=== PATIENT | female | born 1985 | race Caucasian/White ===

== ENCOUNTER 2016-08-05 15:09 | Emergency (ER) | payer MEDICAID ==
[~2016-08-05] VITALS: Wt 82.0 kg
[~2016-08-05 15:09] MED LIST: ADV25050 INH; ALBU18HF IH; ALBU8.5H3 INH; BACTDS PO; CEPH-443 PO; CETI10CA PO; GUAI118L94 PO; GUAI473L22 PO; HYDR-906 PO; IBUP-1542 PO; IBUP400T22 PO; IBUP800T25 PO; MECL25TA2 PO; PRED50TA PO; PREN-39 PO
--- NOTE | 2016-08-05 17:28 | ERA ---
ER Documentation Chief Complaint Date/Time DATE: 08/05/16 TIME: 17:27 Chief Complaint VAG BLEEDING X3 DAYS, PAIN HPI The patient is a 30-year-old female, presenting to the ER because of vaginal spotting intermittently for the last 3 days, her last menstrual period was 2 years ago. She had hysterectomy. She complains of dyspareunia and vaginal spotting after sexual intercourse. She denies fever, chills, neck pain, chest pain, abdominal pain, vomiting, diarrhea, dysuria. She does not smoke, drink Past medical history: Asthma Past surgical history: Hysterectomy ROS All systems reviewed and are negative except as per history of present illness. Medications Home Meds Active Scripts Ibuprofen* (Motrin*) 600 Mg Tab, 600 MG PO Q6H Y for PAIN AND OR ELEVATED TEMP, #20 TAB Prov:STARR PAIGE MD 08/05/16 Hydrocodone/Acetaminophen ([place] 5-325 Tablet) 1 Each Tablet, 1 TAB PO Q6H Y for PAIN, #15 TAB Prov:SIMONE LORA MD 06/10/16 Ibuprofen* (Motrin*) 600 Mg Tab, 600 MG PO Q6, #30 TAB Prov:SIMONE LORA MD 06/10/16 Albuterol Sulfate* (Proair HFA*) 8.5 Gm Hfa.aer.ad, 2 PUFF INH Q4H Y for WHEEZING AND SOB, #1 INHALER Prov:NEETA VITAL NP 03/25/16 Prednisone* (Prednisone*) 50 Mg Tablet, 50 MG PO DAILY, #5 TAB Prov:NEETA VITAL NP 03/25/16 Ibuprofen* (Motrin*) 400 Mg Tab, 400 MG PO Q6H Y for PAIN AND OR ELEVATED TEMP, #30 TAB Prov:NEETA VITAL NP 03/25/16 Cetirizine Hcl* (Zyrtec*) 10 Mg Capsule, 10 MG PO DAILY, #30 TAB.CHEW Prov:NEETA VITAL NP 03/25/16 Guaifenesin-Codeine Phosphate* (Guaifenesin* AC Cough Syrup) 473 Ml Liquid, 5 ML PO Q4H Y for COUGH, #60 ML Prov:NEETA VITAL NP 03/25/16 Prednisone* (Prednisone*) 50 Mg Tablet, 50 MG PO DAILY, #5 TAB Prov:NEETA VITAL NP 01/18/16 Albuterol Sulfate* (Proair HFA*) 8.5 Gm Hfa.aer.ad, 2 PUFF INH Q4H Y for WHEEZING AND SOB, #1 INHALER Prov:NEETA VITAL NP 01/18/16 Cetirizine Hcl* (Zyrtec*) 10 Mg Capsule, 10 MG PO DAILY, #30 TAB.CHEW Prov:NEETA VITAL NP 01/18/16 Guaifenesin-Codeine Phosphate* (Guaifenesin* with Codeine Liq) 120 Ml Liquid, 5 ML PO Q4H for COUGH, #60 ML Prov:NEETA VITAL NP 01/18/16 Ibuprofen* (Motrin*) 600 Mg Tab, 600 MG PO Q6H Y for PAIN AND OR ELEVATED TEMP, #30 TAB Prov:HOLLIE AJ NP 11/14/15 Meclizine Hcl* (Antivert*) 25 Mg Tablet, 25 MG PO Q6H Y for NAUSEA AND/OR VOMITING, #20 TAB Prov:HOLLIE AJ NP 11/14/15 Ibuprofen* (Motrin*) 800 Mg Tab, 800 MG PO Q6H Y for PAIN AND OR ELEVATED TEMP, #30 TAB Prov:ALETA TINOCO MD 06/11/15 Cephalexin* (Keflex*) 500 Mg Capsule, 500 MG PO QID for 7 Days, CAP Prov:ALETA TINOCO MD 06/11/15 Sulfamethoxazole-Trimethoprim* (Bactrim* DS) 800-160 Mg Tab, 1 TAB PO BID for 7 Days, TAB Prov:ALETA TINOCO MD 06/11/15 Salmeterol Xinaf/Fluticasone* (Advair*) 250-50 Diskus Inhaler, 1 INH INH BID, # 60 INH 1 Refill Prov:ALEJA MONAHAN 08/23/14 Albuterol Sulfate* (Ventolin HFA*) 18 Gm Hfa.aer.ad, 2 PUFF IH Q4H Y for WHEEZING AND RESP DISTRESS, #1 EA 2 Refills Prov:ALEJA MONAHAN 08/23/14 Reported Medications Albuterol Sulfate* (Proair HFA*) 8.5 Gm Hfa.aer.ad, 2 PUFF INH Q6, INH 09/14/14 Vits W-Ca,Fe,Fa(<1MG) ( Vitamins) 1 Tab Tablet, 1 TAB PO DAILY 09/14/14 Allergies Allergies: Coded Allergies: No Known Allergy (Verified , 08/05/16) PMhx/Soc History of Surgery: Yes (C section) Anesthesia Reaction: No Hx Neurological Disorder: No Hx Respiratory Disorders: Yes (Asthma) Hx Cardiac Disorders: No Hx Psychiatric Problems: No Hx Miscellaneous Medical Probl: No Hx Alcohol Use: No Hx Substance Use: No Hx Tobacco Use: No Physical Exam Vitals Vital Signs Date Time Temp Pulse Resp B/P Pulse Ox O2 Delivery O2 Flow Rate FiO2 08/05/16 15:31 98.2 88 17 141/68 99 Physical Exam Const: No acute distress. Head: Atraumatic. Eyes: Normal Conjunctiva. ENT: Normal External Ears, Nose and Mouth. Neck: Full range of motion. No meningismus. Resp: Clear to auscultation bilaterally. Cardio: Regular rate and rhythm, no murmurs. Abd: Soft, non distended, normal bowel sounds, non tender. Skin: No petechiae or rashes. Back: No midline or flank tenderness. Ext: No cyanosis, or edema. Neur: Awake and alert. No focal deficit Psych: Normal Mood and Affect. Results 24 hrs Laboratory Tests Test 08/05/16 17:53 Bedside Urine Blood 2+ Bedside Urine Glucose (UA) Negative Bedside Urine Ketones (LAB) Negative Bedside Urine Leukocyte Esterase (L Negative Bedside Urine Nitrite (LAB) Negative Bedside Urine Protein (LAB) Negative Bedside Urine pH (LAB) 5.5 Procedures/MDM MEDICAL MAKING DECISION: The patient is a 30-year-old female, presenting with vaginal spotting hematuria of unclear etiology. The differential diagnoses considered include but are not limited to cystitis, ovarian cyst, appendicitis. Departure Diagnosis: Primary Impression: Hematuria Additional Impression: Vaginal spotting Condition: Good Comments She was discharged with Motrin and advised to follow-up with customer account manager in about 1-2 days, sooner if needed and return if any concern The patient's blood pressure was elevated (>120/80) but appears stable without evidence of hypertension emergency or urgency. The patient was counseled about the risks of hypertension and urged to pursue outpatient monitoring and therapy within a week with their primary care physician. STARR PAIGE MD Aug 05, 2016 17:28
[2016-08-05 17:52] LABS: URINE BLOOD (Dip) POC 2+ (NEGATIVE)
[2016-08-05] MEDS ORDERED: IBUP-1542 PO (18:21)
[2016-08-05 19:12] VITALS: BP 122/68; PULSE 77; RESP 18
== END 2016-08-05 19:16 | disposition home or self-care (01) ==
LOC: FTE 15:09
DX: R31.9 Hematuria, unspecified (principal); J45.909 Unspecified asthma, uncomplicated
CPT/HCPCS: 81003; Z7502; 99283

== ENCOUNTER 2016-12-03 20:42 | Emergency (ER) | payer MEDICAID ==
[~2016-12-03] VITALS: Ht 157.5 cm; Wt 83.0 kg
[2016-12-03 20:45] VITALS: Ht 157.5 cm; Wt 83.0 kg
[2016-12-03] MEDS ORDERED: ACET325T33 PO (23:40)
[2016-12-03] MEDS ORDERED: UDROBAC PO (23:40)
[2016-12-03] MEDS ORDERED: LORA10CA PO (23:40)
--- NOTE | 2016-12-03 23:41 | RADRPT ---
PROCEDURE: XR Chest. CLINICAL INDICATION: Chest pain. TECHNIQUE: Single frontal view of the chest. COMPARISON: 01/17/2016. FINDINGS: The cardiomediastinal silhouette is within normal limits. The lungs are clear. No signs of pleural f luid or pneumothorax are seen. The osseous structures and soft tissues are unremarkable. IMPRESSION: No evidence for active cardiopulmonary disease. RPTAT: [facility] Physician Cristiana Date Time Electronically viewed and signed by Fernando Mendoza Physician on 12/03/2016 23:41 RS/
--- NOTE | 2016-12-03 23:47 | ERD ---
ER Documentation Chief Complaint Date/Time DATE: 12/03/16 TIME: 23:45 Chief Complaint flu like symtoms- body aches, cough, runny nose HPI This is a 30-year-old female presenting to the emergency department complaining of cough, runny nose, body aches, sore throat since past Friday. Patient rates t7 his out of 10. She denies any shortness of breath or chest pain. She does state that she has posterior back pain. She has took ibuprofen at 530 without much relief. ROS All systems reviewed and are negative except as per history of present illness. Medications Home Meds Active Scripts Acetaminophen* (Tylenol*) 325 Mg Tablet, 650 MG PO Q4H Y for MILD PAIN LEVEL 1-3 , #30 TAB Prov:CHRISTIANE ODONNELL PA-C 12/03/16 Loratadine* (Claritin*) 10 Mg Capsule, 10 MG PO DAILY, #30 CAP Prov:CHRISTIANE ODONNELL PA-C 12/03/16 Guaifenesin-Codeine Phosphate* (Robitussin* AC) 5 Ml Syrup, 5 ML PO Q4H Y for COUGH, #120 ML Prov:CHRISTIANE ODONNELL PA-C 12/03/16 Ibuprofen* (Motrin*) 600 Mg Tab, 600 MG PO Q6H Y for PAIN AND OR ELEVATED TEMP, #20 TAB Prov:STARR PAIGE MD 08/05/16 Hydrocodone/Acetaminophen ([place] 5-325 Tablet) 1 Each Tablet, 1 TAB PO Q6H Y for PAIN, #15 TAB Prov:SIMONE LORA MD 06/10/16 Ibuprofen* (Motrin*) 600 Mg Tab, 600 MG PO Q6, #30 TAB Prov:SIMONE LORA MD 06/10/16 Albuterol Sulfate* (Proair HFA*) 8.5 Gm Hfa.aer.ad, 2 PUFF INH Q4H Y for WHEEZING AND SOB, #1 INHALER Prov:NEETA VITAL NP 03/25/16 Prednisone* (Prednisone*) 50 Mg Tablet, 50 MG PO DAILY, #5 TAB Prov:NEETA VITAL NP 03/25/16 Ibuprofen* (Motrin*) 400 Mg Tab, 400 MG PO Q6H Y for PAIN AND OR ELEVATED TEMP, #30 TAB Prov:NEETA VITAL NP 03/25/16 Cetirizine Hcl* (Zyrtec*) 10 Mg Capsule, 10 MG PO DAILY, #30 TAB.CHEW Prov:NEETA VITAL NP 03/25/16 Guaifenesin-Codeine Phosphate* (Guaifenesin* AC Cough Syrup) 473 Ml Liquid, 5 ML PO Q4H Y for COUGH, #60 ML Prov:NEETA VITAL SOCIAL SECURITY SPECIALIST 03/25/16 Prednisone* (Prednisone*) 50 Mg Tablet, 50 MG PO DAILY, #5 TAB Prov:NEETA VITAL NP 01/18/16 Albuterol Sulfate* (Proair HFA*) 8.5 Gm Hfa.aer.ad, 2 PUFF INH Q4H Y for WHEEZING AND SOB, #1 INHALER Prov:NEETA VITAL NP 01/18/16 Cetirizine Hcl* (Zyrtec*) 10 Mg Capsule, 10 MG PO DAILY, #30 TAB.CHEW Prov:NEETA VITAL NP 01/18/16 Guaifenesin-Codeine Phosphate* (Guaifenesin* with Codeine Liq) 120 Ml Liquid, 5 ML PO Q4H for COUGH, #60 ML Prov:NEETA VITAL NP 01/18/16 Ibuprofen* (Motrin*) 600 Mg Tab, 600 MG PO Q6H Y for PAIN AND OR ELEVATED TEMP, #30 TAB Prov:HOLLIE AJ NP 11/14/15 Meclizine Hcl* (Antivert*) 25 Mg Tablet, 25 MG PO Q6H Y for NAUSEA AND/OR VOMITING, #20 TAB Prov:HOLLIE AJ NP 11/14/15 Ibuprofen* (Motrin*) 800 Mg Tab, 800 MG PO Q6H Y for PAIN AND OR ELEVATED TEMP, #30 TAB Prov:ALETA TINOCO MD 06/11/15 Cephalexin* (Keflex*) 500 Mg Capsule, 500 MG PO QID for 7 Days, CAP Prov:ALETA TINOCO MD 06/11/15 Sulfamethoxazole-Trimethoprim* (Bactrim* DS) 800-160 Mg Tab, 1 TAB PO BID for 7 Days, TAB Prov:ALETA TINOCO MD 06/11/15 Salmeterol Xinaf/Fluticasone* (Advair*) 250-50 Diskus Inhaler, 1 INH INH BID, # 60 INH 1 Refill Prov:ALEJA MONAHAN 08/23/14 Albuterol Sulfate* (Ventolin HFA*) 18 Gm Hfa.aer.ad, 2 PUFF IH Q4H Y for WHEEZING AND RESP DISTRESS, #1 EA 2 Refills Prov:REGIDORALEJA 08/23/14 Reported Medications Albuterol Sulfate* (Proair HFA*) 8.5 Gm Hfa.aer.ad, 2 PUFF INH Q6, INH 09/14/14 Vits W-Ca,Fe,Fa(<1MG) ( Vitamins) 1 Tab Tablet, 1 TAB PO DAILY 09/14/14 Allergies Allergies: Coded Allergies: No Known Allergy (Verified , 08/05/16) PMhx/Soc History of Surgery: Yes ( x1) Anesthesia Reaction: No Hx Neurological Disorder: No Hx Respiratory Disorders: Yes (asthma) Hx Cardiac Disorders: No Hx Psychiatric Problems: No Hx Miscellaneous Medical Probl: No Hx Alcohol Use: No Hx Substance Use: No Hx Tobacco Use: No Smoking Status: Never smoker Physical Exam Vitals Vital Signs Date Time Temp Pulse Resp B/P Pulse Ox O2 Delivery O2 Flow Rate FiO2 12/03/16 20:45 98.9 79 20 139/83 99 Physical Exam GENERAL: well-developed/well-nourished, in no apparent distress, non-toxic appearing HEAD: NC/AT, no swelling noted in frontal or maxillary areas EARS: bilateral tympanic membrane is intact without erythema or effusion NARES: congested THROAT: oropharynx nonerythematous without exudates, no tonsil enlargement, post nasal drip EYES: Conjunctiva normal NECK: Supple, no lymphadenopathy PULM: CTA bilaterally, no rales, rhonchi, or wheezing heard CV: Normal S1S2, RRR, good capillary refill GI: Soft, non-distended, normal bowel sounds, non-tender BACK: No midline tenderness, no masses EXT No clubbing, cyanosis, or edema NEURO: Alert and Orientated SKIN: Intact, normal turgor PSYCH: Normal mood and mentation Procedures/MDM 30-year-old female presents to the ER with symptoms most consistent with upper respiratory infection, which is most likely viral. My clinical suspicion is low suspicion for pneumonia, strep pharyngitis, or pulmonary emergencies due to physical examination. Patient's lungs were clear on examination. Patient is complaining of posterior back pain and wanted a chest x-ray, chest x-ray did not show any evidence of infiltrates, pneumothorax or pleural effusion. Low suspicion for pneumonia physical examination. DISPOSITION: hemodynamically stable for discharge home. Prescription for C DM, Claritin and Tylenol was given to patient, discussed to return to the ED if not improving as expected or follow-up with a primary care physician. Patient understood and agreed with this plan. Departure Diagnosis: Primary Impression: Upper respiratory infection Condition: Stable Patient Instructions: Preventing Common Respiratory Infections, Uri, Viral, No Abx (Adult) Referrals: NO PRIMARY,CARE PHYSICIAN (PCP) Additional Instructions: Visite a ackerman cassandra ernst para un EXAMEN.Regrese a estas instalaciones si no se mejora mary carmen esperbamos o mary carmen le dijimos. [place] toda la medicina dante y mary carmen se le indic. Regrese a estas instalaciones si no se mejora mary carmen esperbamos o mary carmen le dijimos. CHRISTIANE ODONNELL PA-C December 03, 2016 23:47
[2016-12-04 00:23] VITALS: BP 137/85; PULSE 70; RESP 18; TEMP 98.2
== END 2016-12-04 00:24 | disposition home or self-care (01) ==
LOC: FTE 20:42
DX: J06.9 Acute upper respiratory infection, unspecified (principal); J45.909 Unspecified asthma, uncomplicated
CPT/HCPCS: 71010

== ENCOUNTER 2017-03-10 16:07 | Emergency (ER) | payer MEDICAID ==
[~2017-03-10] VITALS: Ht 160 cm; Wt 75.0 kg
[~2017-03-10 16:07] MED LIST changes: +ACET325T33 PO; +ALB4 PO; +ALBU8.5H5 IH; +AUG875 PO; +AZIT250T6 PO; +LORA10CA PO; +PRED10TA PO; +PREN-39; +TYL500 PO; +UDROBAC PO
[2017-03-10 16:13] VITALS: Ht 160 cm; Wt 75.0 kg
[2017-03-10] MEDS ORDERED: KETOROLAC 30 MG INJ IM STA (16:55)
[2017-03-10] MEDS ORDERED: ONDANSETRON (ODT) 4 MG TAB ODT STA (16:55)
[2017-03-10] MEDS ORDERED: HYDROCODONE/APAP (5/325) TAB PO ONE (17:00)
[2017-03-10] MEDS ORDERED: MECLIZINE 12.5 MG TAB PO ONE (17:00)
[2017-03-10 17:44] LABS: URINE BLOOD (Dip) POC 2+ (NEGATIVE)
[2017-03-10] MEDS ORDERED: NAPR-260 PO (17:58)
[2017-03-10] MEDS ORDERED: AZIT250T94 PO (17:58)
[2017-03-10 18:08] VITALS: BP 111/71; PULSE 97; RESP 20; TEMP 98.9
--- NOTE | 2017-03-10 20:41 | ERD ---
ER Documentation Chief Complaint Date/Time DATE: 03/10/17 TIME: 20:37 Chief Complaint HEADACHE, DIZZINESS, NECK PAIN, BACK PAIN AND FEVER X 3 DAYS HPI This patient is a 31-year-old female with past medical history of headaches presenting to the emergency department with headache over the entire head for the past 3 days which has been intermittent. Symptoms are moderate in severity currently. Additionally she has had full body pain. Symptoms are alleviated with ibuprofen. She is also had mild sore throat. She denies nausea, vomiting , diarrhea, or other symptoms currently. She has also felt dizzy. ROS All systems reviewed and are negative except as per history of present illness. Medications Home Meds Active Scripts Naproxen* (Naprosyn*) 500 Mg Tablet, 500 MG PO BID Y for PAIN AND/OR INFLAMMATION, #30 TAB Prov:KARIN CUEVAS PA-C 03/10/17 Azithromycin* (Zithromax*) 250 Mg Tablet, 250 MG PO .ZPACK DIRECTED, #6 TAB TAKE 500 MG (2 TABS) THE FIRST DAY THEN 250 MG (1 TAB) DAYS 2-5 Prov:KARIN CUEVAS PA-C 03/10/17 Acetaminophen* (Tylenol*) 325 Mg Tablet, 650 MG PO Q4H Y for MILD PAIN LEVEL 1-3 , #30 TAB Prov:CHRISTIANE ODONNELL PA-C 12/03/16 Loratadine* (Claritin*) 10 Mg Capsule, 10 MG PO DAILY, #30 CAP Prov:CHRISTIANE ODONNELL PA-C 12/03/16 Guaifenesin-Codeine Phosphate* (Robitussin* AC) 5 Ml Syrup, 5 ML PO Q4H Y for COUGH, #120 ML Prov:CHRISTIANE ODONNELL PA-C 12/03/16 Ibuprofen* (Motrin*) 600 Mg Tab, 600 MG PO Q6H Y for PAIN AND OR ELEVATED TEMP, #20 TAB Prov:STARR PAIGE MD 08/05/16 Hydrocodone/Acetaminophen ([place] 5-325 Tablet) 1 Each Tablet, 1 TAB PO Q6H Y for PAIN, #15 TAB Prov:SIMONE LORA MD 06/10/16 Ibuprofen* (Motrin*) 600 Mg Tab, 600 MG PO Q6, #30 TAB Prov:SIMONE LORA MD 06/10/16 Albuterol Sulfate* (Proair HFA*) 8.5 Gm Hfa.aer.ad, 2 PUFF INH Q4H Y for WHEEZING AND SOB, #1 INHALER Prov:NEETA VITAL NP 03/25/16 Prednisone* (Prednisone*) 50 Mg Tablet, 50 MG PO DAILY, #5 TAB Prov:NEETA VITAL NP 03/25/16 Ibuprofen* (Motrin*) 400 Mg Tab, 400 MG PO Q6H Y for PAIN AND OR ELEVATED TEMP, #30 TAB Prov:NEETA VITAL NP 03/25/16 Cetirizine Hcl* (Zyrtec*) 10 Mg Capsule, 10 MG PO DAILY, #30 TAB.CHEW Prov:NEETA VITAL NP 03/25/16 Guaifenesin-Codeine Phosphate* (Guaifenesin* AC Cough Syrup) 473 Ml Liquid, 5 ML PO Q4H Y for COUGH, #60 ML Prov:NEETA VITAL NP 03/25/16 Prednisone* (Prednisone*) 50 Mg Tablet, 50 MG PO DAILY, #5 TAB Prov:NEETA VITAL NP 01/18/16 Albuterol Sulfate* (Proair HFA*) 8.5 Gm Hfa.aer.ad, 2 PUFF INH Q4H Y for WHEEZING AND SOB, #1 INHALER Prov:NEETA VITAL NP 01/18/16 Cetirizine Hcl* (Zyrtec*) 10 Mg Capsule, 10 MG PO DAILY, #30 TAB.CHEW Prov:NEETA VITAL NP 01/18/16 Guaifenesin-Codeine Phosphate* (Guaifenesin* with Codeine Liq) 120 Ml Liquid, 5 ML PO Q4H for COUGH, #60 ML Prov:NEETA VITAL NP 01/18/16 Ibuprofen* (Motrin*) 600 Mg Tab, 600 MG PO Q6H Y for PAIN AND OR ELEVATED TEMP, #30 TAB Prov:HOLLIE AJ NP 11/14/15 Meclizine Hcl* (Antivert*) 25 Mg Tablet, 25 MG PO Q6H Y for NAUSEA AND/OR VOMITING, #20 TAB Prov:HOLLIE AJ NP 11/14/15 Ibuprofen* (Motrin*) 800 Mg Tab, 800 MG PO Q6H Y for PAIN AND OR ELEVATED TEMP, #30 TAB Prov:ALETA TINOCO MD 06/11/15 Cephalexin* (Keflex*) 500 Mg Capsule, 500 MG PO QID for 7 Days, CAP Prov:ALETA TINOCO MD 06/11/15 Sulfamethoxazole-Trimethoprim* (Bactrim* DS) 800-160 Mg Tab, 1 TAB PO BID for 7 Days, TAB Prov:ALETA TINOCO MD 06/11/15 Salmeterol Xinaf/Fluticasone* (Advair*) 250-50 Diskus Inhaler, 1 INH INH BID, # 60 INH 1 Refill Prov:ALEJA MONAHAN 08/23/14 Albuterol Sulfate* (Ventolin HFA*) 18 Gm Hfa.aer.ad, 2 PUFF IH Q4H Y for WHEEZING AND RESP DISTRESS, #1 EA 2 Refills Prov:ALEJA MONAHAN 08/23/14 Reported Medications Albuterol Sulfate* (Proair HFA*) 8.5 Gm Hfa.aer.ad, 2 PUFF INH Q6, INH 09/14/14 Vits W-Ca,Fe,Fa(<1MG) ( Vitamins) 1 Tab Tablet, 1 TAB PO DAILY 09/14/14 Allergies Allergies: Coded Allergies: No Known Allergy (Verified , 08/05/16) PMhx/Soc History of Surgery: Yes ( x1) Anesthesia Reaction: No Hx Neurological Disorder: No Hx Respiratory Disorders: Yes (asthma) Hx Cardiac Disorders: No Hx Psychiatric Problems: No Hx Miscellaneous Medical Probl: No Hx Alcohol Use: No Hx Substance Use: No Hx Tobacco Use: No Smoking Status: Never smoker Physical Exam Vitals Vital Signs Date Time Temp Pulse Resp B/P Pulse Ox O2 Delivery O2 Flow Rate FiO2 03/10/17 18:08 98.9 97 20 111/71 99 Room Air 03/10/17 16:13 101.4 115 18 144/89 99 Physical Exam Const: Patient is closing her eyes stating she is in pain. Head: Atraumatic Eyes: Normal Conjunctiva ENT: Normal External Ears, Nose and Mouth. There is erythema with scant exudate and tonsillar hypertrophy noted. The airway is clear. There is no uvular deviation. Neck: Full range of motion..~ No meningismus. Resp: Clear to auscultation bilaterally Cardio: Regular rate and rhythm, no murmurs Abd: Soft, non tender, non distended. Normal bowel sounds Skin: No petechiae or rashes Back: No midline or flank tenderness Ext: No cyanosis, or edema Neur: Awake and alert Psych: Normal Mood and Affect Results 24 hrs Laboratory Tests Test 03/10/17 17:50 Bedside Urine pH (LAB) 6.0 Bedside Urine Protein (LAB) Negative Bedside Urine Glucose (UA) Negative Bedside Urine Ketones (LAB) Trace Bedside Urine Blood 2+ Bedside Urine Nitrite (LAB) Negative Bedside Urine Leukocyte Esterase (L Negative Current Medications Medications (Trade) Dose Ordered Sig/Tain[place] Route PRN Reason Start Time Stop Time Status Last Admin Dose Admin Acetaminophen/ Hydrocodone Bitart ([place] (5/325)) 1 tab ONCE ONCE PO 03/10/17 17:00 03/10/17 17:01 DC 03/10/17 17:35 Ondansetron HCl (Zofran Odt) 4 mg ONCE STAT ODT 03/10/17 16:55 03/10/17 16:56 DC 03/10/17 17:35 Ketorolac Tromethamine (Toradol) 30 mg ONCE STAT IM 03/10/17 16:55 03/10/17 16:56 DC 03/10/17 17:35 Meclizine HCl (Antivert) 12.5 mg ONCE ONCE PO 03/10/17 17:00 03/10/17 17:01 DC 03/10/17 17:35 Procedures/MDM 31-year-old female presenting to the emergency department with complaints of sore throat, fever, headache, dizziness. Physical examination shows an erythematous and hypertrophied tonsils with scant exudate present. I suspect strep pharyngitis. The patient is stable for outpatient management with a prescription for azithromycin and naproxen. Urine dip showed no signs of urinary tract infection. The patient was feeling significantly improved after medication in the department. I have low suspicion for meningitis, intracranial hemorrhage, peritonsillar abscess, urinary tract infection, pyelonephritis, sepsis, or other emergent conditions. The patient was advised to return to the department immediately for any new or worsening symptoms. She agreed with the discharge plan of diagnosis. All questions and concerns were addressed. Close follow-up with a primary care physician was advised. Departure Diagnosis: Primary Impression: Pharyngitis Additional Impression: Fever Condition: Fair Patient Instructions: Fever Control (Adult), Pharyngitis, Strep (Presumed) [facility]errals: [facility] Usted se contreras hecho un examen mdico de control que le indica que no est en hannah condicin que requiera tratamiento urgente en el Departamento de Emergencia. Un estudio ms profundo y el tratamiento de ackerman condicin pueden esperar sin ningn riesgo hasta que usted sea atendida/o en el consultorio de ackerman mdico o hannah cl yesika. Es responsabilidad suya arreglar hannah dale para el seguimiento del jaja. MANEJO DE CONDICIONES NO URGENTES EN EL FUTURO 1) Si usted tiene un mdico de atencin primaria: Usted debera llamar a ackerman mdico de atencin primaria antes de venir al departamento de emergencia. Despus de las horas de consultorio, ackerman doctor o ackerman asociado/a est disponible por telfono. El mdico o enfermero de doyle en el servicio telefnico puede asesorarle por eh medio para atender el problema, o jaja contrario se puede programar hannah dale. 2) Si usted no tiene un mdico de atencin primaria: Llame al mdico o clnica de referencia que aparece abajo martín las horas de consultorio para hacer hannah dale para que le vean. CLINICAS: [facility] [phone] [address] [facility] 186 [phone] [address] [facility] 905 [phone] [address] [facility] [phone] [address] [place] [id number] [phone] [facility]. [phone] [address] Additional Instructions: No mas mejor en 2-3 tang, regresar. Mas peor en 24 horas, regresear rapidamente. Ir a doctor primario in 5-7 tang. Usar instrucciones cuando leah medicamento. KARIN CUEVAS PA-C Mar 10, 2017 20:41
== END 2017-03-10 18:08 | disposition home or self-care (01) ==
LOC: FTE 16:07
DX: J02.9 Acute pharyngitis, unspecified (principal); R50.9 Fever, unspecified; J45.909 Unspecified asthma, uncomplicated
CPT/HCPCS: 81003; 96372; J1885; Z7502; Z7610

== ENCOUNTER 2017-05-31 02:10 | Emergency (ER) | END 2017-05-31 11:24 | disposition home or self-care (01) | DX: N73.9 Female pelvic inflammatory disease, unspecified (principal); R40.2252 Coma scale, best verbal response, oriented, at arrival to emergency department; J45.909 Unspecified asthma, uncomplicated; R40.2142 Coma scale, eyes open, spontaneous, at arrival to emergency department; R40.2362 Coma scale, best motor response, obeys commands, at arrival to emergency department | CPT/HCPCS: 36415; 74176; 76830; 76856; 80053; 81001; 83690; 85025; 87070; 96372; 96374; 96375; 96376; J0696; J1885; J2270; J7030; Z7502 ==

== ENCOUNTER 2017-09-10 08:52 | Emergency (ER) | END 2017-09-10 10:35 | disposition home or self-care (01) ==

== ENCOUNTER 2017-09-10 16:01 | Emergency (ER) | END 2017-09-11 07:54 | disposition home or self-care (01) ==